=== PATIENT | female | born 1965 | race American Indian/Alaskan Native ===

== ENCOUNTER 2021-07-22 22:20 | Emergency (ER) | payer SELFPAY ==
[2021-07-22] MEDS ORDERED: KETOROLAC 30 MG/1 ML INJ IM ONE (22:54)
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
[2021-07-23 00:01] VITALS: BP 152/79
== END 2021-07-22 23:59 | disposition home or self-care (01) ==
LOC: ED 22:20
DX: R51.9 Headache, unspecified (principal); I10 Essential (primary) hypertension
CPT/HCPCS: 96372; 99282; J1885